=== PATIENT | female | born 1940 | race Caucasian/White ===

== ENCOUNTER 2016-08-21 15:46 | Inpatient (IN) | payer OTHER, MEDICARE ==
[~2016-08-21] VITALS: Ht 160 cm; Wt 68.2 kg
[~2016-08-21 15:46] MED LIST: ASPI325T39 PO; CALC500C70 PO; MAGN400T6 PO; PSEU30TA20 PO; SENNTAB23 PO; SYN100 PO
[2016-08-21] MEDS ORDERED: SODIUM CHLORIDE 0.9% 1000ML 2,000 ML IV STA (16:01)
[2016-08-21] MEDS ORDERED: ONDANSETRON INJ 2 MG/ML 2 ML VIAL IV STA (16:01)
[2016-08-21] MEDS ORDERED: CHOL500024 PO (16:10)
[2016-08-21] MEDS ORDERED: PROC1TAB5 PO (16:10)
[2016-08-21] MEDS ORDERED: MAGN70CA PO (16:13)
[2016-08-21] MEDS ORDERED: OPTIRAY 320 IV PRN (16:15)
[2016-08-21 17:12] LABS: HEMATOCRIT 34.3 % (37-47); MEAN CELL VOLUME 87.5 fL (80-100); MEAN CORPUSCULAR HEMOGLOBIN 29.1 pg (25-34); MEAN CORPUSCULAR HGB CONC 33.2 g/dl (32-36); MEAN PLATELET VOLUME 9.2 fL (7.4-10.4); PLATELET COUNT 249 K/uL (130-400); RED BLOOD COUNT 3.92 M/uL (4.2-5.4); WHITE BLOOD COUNT 3.69 K/uL (4.8-10.8)
[2016-08-21 17:34] LABS: BUN/CREATININE RATIO 26.1 (10-20); CALCIUM 8.6 mg/dl (8.5-10.1); CREATININE 0.8 mg/dl (0.60-1.20); POTASSIUM 3.3 mmol/L (3.5-5.1)
[2016-08-21 17:57] LABS: COMPLETE YES; IG% 0.3 %; LYMPH % 8.1 %; MONO % 12.2 %; NEUT % 79.4 %
--- NOTE | 2016-08-21 18:28 | DIAGNOSTIC IMAGING REPORT ---
CT OF THE ABDOMEN AND PELVIS WITH CONTRAST CLINICAL HISTORY: Lower abdominal pain and vomiting. History of endometrial cancer. COMPARISON STUDY: CT of the abdomen and pelvis June 21, 2013, chest CT April 11, 2015 and pelvic MRI of April 25, 2015. TECHNIQUE: Following IV administration of 94 mL of Optiray-320, axial images of the abdomen and pelvis were obtained from the lung bases to the proximal femurs. Images were reviewed in the axial, sagittal, and coronal planes. IV contrast was administered without complication. CT DOSE: 454.00 mGy.cm FINDINGS: Visualized portions of the lower chest demonstrate segmental right lower lobe pulmonary emboli. There is no pneumatosis, free air or portal venous gas. The liver, spleen, adrenal glands, kidneys and pancreas are unremarkable with exception of numerous subcentimeter renal lesions which are too small to characterize. There are left-sided parapelvic cysts. There are no ureteral calculi. There is no hydronephrosis. There is a 2 mm calculus within the lower pole of the right kidney. There is no biliary or pancreatic ductal dilatation. There is evidence for previous left colon resection. There is a small bowel anastomosis. The proximal to mid small bowel is dilated and fluid-filled. Small bowel feces sign is noted. Transition point is noted within the right lower quadrant shown on axial image 289 of 441. Distal small bowel is decompressed. There is a small amount of ascites. No abscess is present. No suspicious skeletal lesions are present. The endometrium is thickened and heterogeneous, as before. No lymphadenopathy is identified. IMPRESSION: 1. Findings consistent with a moderate grade small bowel obstruction with transition point within the right lower quadrant. Small amount of ascites. No pneumatosis, free air or portal venous gas. 2. Several segmental right lower lobe pulmonary emboli. 3. Endometrial thickening which was shown on prior imaging studies. Residual/recurrent malignancy could have this imaging appearance. Electronically signed by: Adria Allen M.D. 08/21/2016 6:27 PM Dictated Date/Time: 08/21/2016 6:13 PM
[2016-08-21] MEDS ORDERED: HEPARIN IV LOW DOSE NO BOLUS SCH (20:42)
[2016-08-21] MEDS ORDERED: POLYETHYLENE (MIRALAX) 17 GM PACK PO PRN (20:45)
[2016-08-21 20:56] LABS: INR 1.1 (0.9-1.1); PROTHROMBIN TIME (PATIENT) 11.3 SECONDS (9.0-12.0)
--- NOTE | 2016-08-21 20:59 | History and Physical ---
History & Physical Date & Time of Service: Aug 21, 2016 at 20:35 Chief Complaint: Bowels Not Moving, Vomiting, Weak, Stomach Cramps Primary Care Physician: My Vance M.D. History of Present Illness Source: patient, family, clinic records, hospital records 76 year old female with Endometrial Cancer, on weekly chemotherapy with Taxol, presenting with abdominal pain and nausea. Follows with Dr.Manisha Vance for PCP and Dr. Shemar Vance for Oncology, Dr. Taveras in [facility] for Gyne/Onco. Patient receives Taxol weekly (3 weeks on , 1 week off). She is quite active and takes care of activities of daily living independently. Patient was at her usual state of health until last weekend when she started to have some nausea. Last , she started to have abdominal cramps. Yesterday, on the way to [facility] for routine visit, she had nausea and some vomiting episodes. She is not able to keep anything down since yesterday except for some fluids. Last BM was Thursday. Symptoms persisted today, prompting ER consult. CT abdomen reveals (+) moderate small bowel obstruction, transition point at the RLQ, no free air. (+) RLL segmental pulmonary emboli On my exam, patient seen resting in bed with daughter Clayton at the bedside. States she has mild lower quadrant discomfort, but no nausea. No flatus or BM yet. Denies chest pain, dyspnea, palpitations, dizziness. She reports having vaginal spotting, almost daily, which is chronic. No other major bleeding noted. No other symptoms Past Medical/Surgical History Medical Problems: (1) Diverticulitis Status: Resolved Surgical Problems: (1) H/O parathyroidectomy Status: Resolved Family History Cancer- mother Social History Smoking Status: Never Smoker Alcohol Use: none Drug Use: none Marital Status: Housing status: lives alone Occupational Status: retired Allergies Coded Allergies: Cashew (Verified Allergy, Severe, lips swell, 08/21/16) Celecoxib (Verified Allergy, Intermediate, RASH, 08/21/16) Meloxicam (Verified Allergy, Intermediate, RASH, 08/21/16) Adhesives (Verified Allergy, Unknown, SYSTEMIC ITCHING, 08/21/16) Home Medications Scheduled Cholecalciferol (Vitamin D3 Ultra Potency), 50,000 UNITS PO [id number] Levothyroxine Sodium (Synthroid), 100 MCG PO DAILY Sennosides-Docusate Sodium (Stool Softener), 1 TAB PO DAILY Scheduled PRN Aspirin (Aspirin Ec), 650 MG PO QID PRN for Pain Magnesium (Magnesium Sulfate), Unknown Dose PO DIRECTED PRN for Constipation Prochlorperazine Maleate (Compazine), 10 MG PO [id number] PRN for Nausea or Vomiting Pseudoephedrine (Sudafed), 30 MG PO Q4 PRN for Nasal Congestion Review of Systems Constitutional- no fever; no weight loss Eyes- no acute visual changes ENT- no sinus drainage; no pharyngitis Pulmonary- no cough, no wheezing, no shortness of breath Cardiac- no chest pain, no palpitations, no orthopnea, no dependent edema GI- (+) as noted above - no dysuria, no hematuria Musculoskeletal- no arthralgias, no myalgias Derm- no rashes, no new skin lesions, no changing skin lesions Hematologic- no unusual bruising, no unusual bleeding Lymphatics- no adenopathy Endocrine- no polyuria or polydipsia; no heat or cold intolerance Neuro- no headaches, no focal neurologic symptoms Psych- no anxiety, no depression Physical Exam Vital Signs Date Time Temp Pulse Resp B/P (MAP) Pulse Ox O2 Delivery O2 Flow Rate FiO2 08/21/16 19:10 102 20 134/68 95 Room Air 08/21/16 17:47 106 20 153/64 97 Room Air 08/21/16 15:49 37.0 122 18 134/78 97 Room Air General Appearance: WD/WN, no apparent distress Head: normocephalic, atraumatic Eyes: normal inspection, EOMI, sclerae normal ENT: normal ENT inspection, hearing grossly normal, pharynx normal Neck: supple, no adenopathy, thyroid normal, no JVD, trachea midline Respiratory/Chest: chest non-tender, lungs clear, normal breath sounds, no respiratory distress, no accessory muscle use Cardiovascular: regular rate, rhythm, no JVD, no murmur, normal peripheral pulses, + pertinent finding (Port on the right chest wall: clean, no swelling) Abdomen/GI: non tender, soft, no organomegaly, + pertinent finding (hypoactive bowel sounds) Back: normal inspection, no CVA tenderness Extremities/Musculoskelatal: no calf tenderness, no pedal edema, normal range of motion, non-tender, + pertinent finding (right arm (+) mild edema/warmth/ tenderness) Neurologic/Psych: trim installer II-XII nml as tested, no motor/sensory deficits, alert, normal mood/affect, oriented x 3 Skin: normal color, warm/dry, no rash Lymphatic: no adenopathy Diagnostics Laboratory Results Results Past 24 Hours Test 08/21/16 16:30 08/21/16 17:50 08/21/16 20:28 Range/Units White Blood Count 3.69 4.8-10.8 K/uL Red Blood Count 3.92 4.2-5.4 M/uL Hemoglobin 11.4 12.0-16.0 g/dL Hematocrit 34.3 37-47 % Mean Corpuscular Volume 87.5 80-100 fL Mean Corpuscular Hemoglobin 29.1 25-34 pg Mean Corpuscular Hemoglobin Concent 33.2 32-36 g/dl Platelet Count 249 130-400 K/uL Mean Platelet Volume 9.2 7.4-10.4 fL Neutrophils (%) (Auto) 79.4 % Lymphocytes (%) (Auto) 8.1 % Monocytes (%) (Auto) 12.2 % Eosinophils (%) (Auto) 0.0 % Basophils (%) (Auto) 0.0 % Neutrophils # (Auto) 2.93 1.4-6.5 K/uL Lymphocytes # (Auto) 0.30 1.2-3.4 K/uL Monocytes # (Auto) 0.45 0.11-0.59 K/uL Eosinophils # (Auto) 0.00 0-0.5 K/uL Basophils # (Auto) 0.00 0-0.2 K/uL RDW Standard Deviation 55.9 36.4-46.3 fL RDW Coefficient of Variation 17.4 11.5-14.5 % Immature Granulocyte % (Auto) 0.3 % Immature Granulocyte # (Auto) 0.01 0.00-0.02 K/uL Red Blood Cell Morphology Unremarkable Sodium Level 135 136-145 mmol/L Potassium Level 3.3 3.5-5.1 mmol/L Chloride Level 99 98-107 mmol/L Carbon Dioxide Level 27 21-32 mmol/L Anion Gap 9.0 3-11 mmol/L Blood Urea Nitrogen 21 7-18 mg/dl Creatinine 0.80 0.60-1.20 mg/dl Est Creatinine Clear Calc Drug Dose 54.8 ml/min Estimated GFR () 82.4 Estimated GFR (Non- 71.1 BUN/Creatinine Ratio 26.1 10-20 Random Glucose 121 70-99 mg/dl Calcium Level 8.6 8.5-10.1 mg/dl Total Bilirubin 1.1 0.2-1 mg/dl Direct Bilirubin 0.2 0-0.2 mg/dl Aspartate Amino Transf (AST/SGOT) 20 15-37 U/L Alanine Aminotransferase (ALT/SGPT) 21 12-78 U/L Alkaline Phosphatase 52 45-117 U/L Total Protein 6.4 6.4-8.2 gm/dl Albumin 3.0 3.4-5.0 gm/dl Lipase 76 73-393 U/L Lactic Acid Level 1.0 0.4-2.0 mmol/L Diagnostic Radiology CT abdomen: 1. Findings consistent with a moderate grade small bowel obstruction with transition point within the right lower quadrant. Small amount of ascites. No pneumatosis, free air or portal venous gas. 2. Several segmental right lower lobe pulmonary emboli. 3. Endometrial thickening which was shown on prior imaging studies. Residual/recurrent malignancy could have this imaging appearance. EKG HR 109, sinus rhythm, no signs of acute ischemia or infarct Impression Assessment and Plan 76 year old female with Endometrial Cancer, on weekly chemotherapy with Taxol, presenting with abdominal pain and nausea. SMALL BOWEL OBSTRUCTION - risk factor: history of colectomy - no nausea/vomiting at the ER - NPO, IV fluids, replace K, monitor electrolytes Gen Surg consulted RIGHT LOWER LOBE PULMONARY EMBOLI - hemodynamically stable - check Doppler US of the Upper and Lower Extremity - start Heparin Drip- low dose and no bolus need to monitor vaginal bleeding, if patient has major bleeding, will need IVC filter discussed with Dr. Shemar Vance HYPOKALEMIA - replace with IV - check Mg ENDOMETRIAL CANCER - on chemo with Taxol weekly Code status CPR only as per discussion with patient and daughter Disposition pending lives alone independently needs PT/OT ff up with Dr. Yulia Vance for PCP Dr. Renita Vance for Onco Dr. Taveras in [facility] for Gyne Onco discussed with patient and her daughter, both are agreeable and comfortable with plan of care VTE Prophylaxis VTE Risk Assessment Done? Y/N: Yes Risk Level: High Given or contraindicated: Unfractionated heparin SQ
[2016-08-21] MEDS ORDERED: ACETAMINOPHEN 325 MG TAB PO PRN (21:15)
[2016-08-21] MEDS: HEPARIN 25,000 UNIT/500ML D5W 500 ML IV PRN (21:42)
[2016-08-21 22:28] VITALS: BP 122/67; PULSE 106; TEMP 36.9; O2SAT 93; Ht 160 cm; Wt 68.2 kg
--- NOTE | 2016-08-21 23:05 | EMERGENCY ROOM VISIT NOTE ---
History Report prepared by Josefa: Carmen Arenas Under the Supervision of: Dr. Narayan Landa D.O. First contact with patient: 15:53 Chief Complaint: WEAKNESS Stated Complaint: BOWELS NOT MOVING, VOMITING, WEAK, STOMACH CRAMPS History of Present Illness The patient is a 76 year old female who presents to the Emergency Room with complaints of constant generalized weakness beginning yesterday. The patient states that she has uterine cancer and has been on chemotherapy for a few years. The patient's daughter states that she started his course of chemotherapy 2 months ago and has 3 weeks on and 1 week off. She reports that 2 days ago she went to chemotherapy and yesterday she began to feel nauseous and had 6 episodes of vomiting. She reports that she has not had a bowel movement in the last 2 days and has been having trouble with constipation recently. The patient's daughter states that they have tried an enema and suppositories without relief of her constipation. The patient complains of abdominal cramping. She denies any diarrhea, blood in the stool, urinary symptoms, chest pain, and shortness of breath. She notes a history of diverticulitis and a portion of bowel removed and a hysterectomy. The patient reports that she has been able to keep water down. She states that this is the first time that she has had trouble with vomiting after treatment. Source of History: patient Onset: yesterday Position: other (global) Quality: other (weak) Timing: constant Associated Symptoms: + nausea, + vomiting, + abdominal pain, No chest pain, No SOB, No diarrhea, No urinary symptoms Note: Pt complains of constipation. She denies any blood in the stool. Review of Systems See HPI for pertinent positives & negatives. A total of 10 systems reviewed and were otherwise negative. Past Medical & Surgical Medical Problems: (1) Diverticulitis (2) Endometrial adenocarcinoma (3) Pulmonary embolism (4) Small bowel obstruction (5) Small bowel obstruction Surgical Problems: (1) H/O parathyroidectomy Family History No pertinent family history stated. Social History Smoking Status: Never Smoker Alcohol Use: none Drug Use: none Marital Status: Housing Status: lives with family Occupation Status: retired Current/Historical Medications Scheduled Cholecalciferol (Vitamin D3 Ultra Potency), 50,000 UNITS PO [id number] Levothyroxine Sodium (Synthroid), 100 MCG PO DAILY Sennosides-Docusate Sodium (Stool Softener), 1 TAB PO DAILY Scheduled PRN Aspirin (Aspirin Ec), 650 MG PO QID PRN for Pain Magnesium (Magnesium Sulfate), Unknown Dose PO DIRECTED PRN for Constipation Prochlorperazine Maleate (Compazine), 10 MG PO [id number] PRN for Nausea or Vomiting Pseudoephedrine (Sudafed), 30 MG PO Q4 PRN for Nasal Congestion Allergies Coded Allergies: Cashew (Verified Allergy, Severe, lips swell, 08/21/16) Celecoxib (Verified Allergy, Intermediate, RASH, 08/21/16) Meloxicam (Verified Allergy, Intermediate, RASH, 08/21/16) Adhesives (Verified Allergy, Unknown, SYSTEMIC ITCHING, 08/21/16) Physical Exam Vital Signs Date Time Temp Pulse Resp B/P (MAP) Pulse Ox O2 Delivery O2 Flow Rate FiO2 08/21/16 19:10 102 20 134/68 95 Room Air 08/21/16 17:47 106 20 153/64 97 Room Air 08/21/16 15:49 37.0 122 18 134/78 97 Room Air Physical Exam GENERAL: sitting up in bed, slightly ill appearing, disheveled, alert, well nourished, no distress, non-toxic EYE EXAM: normal conjunctiva OROPHARYNX: no exudate, no erythema, lips, buccal mucosa, and tongue normal and mucous membranes are dry NECK: supple, no nuchal rigidity, no adenopathy, non-tender LUNGS: Clear to auscultation. Normal chest wall mechanics HEART: tachycardic, no murmurs, S1 normal and S2 normal ABDOMEN: abdomen soft, tender to palpation in infraumbilical region bilaterally , normo-active bowel sounds, no masses, no rebound or guarding. BACK: Back is symmetrical on inspection and there is no deformity, no midline tenderness, no CVA tenderness. SKIN: no rashes and no bruising UPPER EXTREMITIES: upper extremities are grossly normal. LOWER EXTREMITIES: No pitting edema. NEURO EXAM: Normal sensorium, cranial nerves II-XII grossly intact, normal speech, no gross weakness of arms, no gross weakness of legs. Medical Decision & Procedures ER Provider Diagnostic Interpretation: Radiology results as stated below per my review and the radiologist's interpretation: CT OF THE ABDOMEN AND PELVIS WITH CONTRAST FINDINGS: Visualized portions of the lower chest demonstrate segmental right lower lobe pulmonary emboli. There is no pneumatosis, free air or portal venous gas. The liver, spleen, adrenal glands, kidneys and pancreas are unremarkable with exception of numerous subcentimeter renal lesions which are too small to characterize. There are left-sided parapelvic cysts. There are no ureteral calculi. There is no hydronephrosis. There is a 2 mm calculus within the lower pole of the right kidney. There is no biliary or pancreatic ductal dilatation. There is evidence for previous left colon resection. There is a small bowel anastomosis. The proximal to mid small bowel is dilated and fluid-filled. Small bowel feces sign is noted. Transition point is noted within the right lower quadrant shown on axial image 289 of 441. Distal small bowel is decompressed. There is a small amount of ascites. No abscess is present. No suspicious skeletal lesions are present. The endometrium is thickened and heterogeneous, as before. No lymphadenopathy is identified. IMPRESSION: 1. Findings consistent with a moderate grade small bowel obstruction with transition point within the right lower quadrant. Small amount of ascites. No pneumatosis, free air or portal venous gas. 2. Several segmental right lower lobe pulmonary emboli. 3. Endometrial thickening which was shown on prior imaging studies. Residual/recurrent malignancy could have this imaging appearance. Electronically signed by: Adria Allen M.D. 08/21/2016 6:27 PM Dictated Date/Time: 08/21/2016 6:13 PM Laboratory Results 08/21/16 16:30 Red Blood Count 3.92, Mean Corpuscular Volume 87.5, Mean Corpuscular Hemoglobin 29.1, Mean Corpuscular Hemoglobin Concent 33.2, Mean Platelet Volume 9.2, Neutrophils (%) (Auto) 79.4, Lymphocytes (%) (Auto) 8.1, Monocytes (%) (Auto) 12.2, Eosinophils (%) (Auto) 0.0, Basophils (%) (Auto) 0.0, Neutrophils # (Auto ) 2.93, Lymphocytes # (Auto) 0.30, Monocytes # (Auto) 0.45, Eosinophils # (Auto ) 0.00, Basophils # (Auto) 0.00 08/21/16 16:30 Test 08/21/16 16:30 08/21/16 17:50 White Blood Count 3.69 K/uL (4.8-10.8) Red Blood Count 3.92 M/uL (4.2-5.4) Hemoglobin 11.4 g/dL (12.0-16.0) Hematocrit 34.3 % (37-47) Mean Corpuscular Volume 87.5 fL (80-100) Mean Corpuscular Hemoglobin 29.1 pg (25-34) Mean Corpuscular Hemoglobin Concent 33.2 g/dl (32-36) Platelet Count 249 K/uL (130-400) Mean Platelet Volume 9.2 fL (7.4-10.4) Neutrophils (%) (Auto) 79.4 % Lymphocytes (%) (Auto) 8.1 % Monocytes (%) (Auto) 12.2 % Eosinophils (%) (Auto) 0.0 % Basophils (%) (Auto) 0.0 % Neutrophils # (Auto) 2.93 K/uL (1.4-6.5) Lymphocytes # (Auto) 0.30 K/uL (1.2-3.4) Monocytes # (Auto) 0.45 K/uL (0.11-0.59) Eosinophils # (Auto) 0.00 K/uL (0-0.5) Basophils # (Auto) 0.00 K/uL (0-0.2) RDW Standard Deviation 55.9 fL (36.4-46.3) RDW Coefficient of Variation 17.4 % (11.5-14.5) Immature Granulocyte % (Auto) 0.3 % Immature Granulocyte # (Auto) 0.01 K/uL (0.00-0.02) Red Blood Cell Morphology Unremarkable Prothrombin Time 11.3 SECONDS (9.0-12.0) Prothromb Time International Ratio 1.1 (0.9-1.1) Activated Partial Thromboplast Time 26.7 SECONDS (21.0-31.0) Partial Thromboplastin Ratio 1.0 Anion Gap 9.0 mmol/L (3-11) Est Creatinine Clear Calc Drug Dose 54.8 ml/min Estimated GFR () 82.4 Estimated GFR (Non- 71.1 BUN/Creatinine Ratio 26.1 (10-20) Calcium Level 8.6 mg/dl (8.5-10.1) Magnesium Level 2.2 mg/dl (1.8-2.4) Total Bilirubin 1.1 mg/dl (0.2-1) Direct Bilirubin 0.2 mg/dl (0-0.2) Aspartate Amino Transf (AST/SGOT) 20 U/L (15-37) Alanine Aminotransferase (ALT/SGPT) 21 U/L (12-78) Alkaline Phosphatase 52 U/L (45-117) Total Protein 6.4 gm/dl (6.4-8.2) Albumin 3.0 gm/dl (3.4-5.0) Lipase 76 U/L (73-393) Lactic Acid Level 1.0 mmol/L (0.4-2.0) Laboratory results per my review. Medications Administered Medications (Trade) Dose Ordered Sig/Walt Route Start Time Stop Time Status Last Admin Dose Admin Sodium Chloride 2,000 ml @ 999 mls/hr Q2H1M STAT IV 08/21/16 16:01 08/21/16 18:01 DC 08/21/16 16:45 999 MLS/HR Ondansetron HCl (Zofran Inj) 4 mg NOW STAT IV 08/21/16 16:01 08/21/16 16:02 DC 08/21/16 16:45 4 MG ECG Indication: weakness Rate (beats per minute): 109 Rhythm: sinus tachycardia Findings: Q waves (Inferior), left axis deviation, other (ST wave changes in anterior) ED Course ED COURSE: Vital signs were reviewed and showed tachycardic and hypertensive The patients medical record was reviewed The above diagnostic studies were performed and reviewed. ED treatments and interventions as stated above. 1553: The patient was evaluated in room C9. A complete history and physical examination was performed. 1601: Zofran Inj 4mg IV, Sodium Chloride 2000 ml @ 999 mls/hr IV. 1438: I reevaluated the patient. Her heart rate came down and she is getting fluids. 1848: I reviewed the patient's case with Dr. Ley. He will evaluate the patient for further management. 1902: Upon reevaluation, the patient is doing well.I discussed my findings with the patient and she understands and agrees with the treatment plan. Based on the patients age, coexisting illnesses, exam and lab findings the decision to treat as an inpatient was made. The patient remained stable while under my care. The patient will be evaluated for further management. Medical Decision Differential Diagnosis includes but is not limited to dehydration, stroke, anemia, hypoglycemia, hyponatremia, hypernatremia, urinary tract infection, pneumonia, bronchitis, sepsis, gastroenteritis, additional abdominal pathology, metabolic abnormalities and infections. Blood pressure screening: Patient was found to have an elevated blood pressure and was referred to their primary doctor for recheck and further treatment. Medication Reconciliation: I attest that I have personally reviewed the patient' s current medication list. Patient is a 76-year-old female with past medical history of uterine cancer who presents the ER for vomiting and abdominal pain. Last bowel movement was on Thursday. Labs were fairly unremarkable. CT of the abdomen pelvis supports small bowel obstruction. Patient declined any pain meds. Was given fluids. Patient was noted to internal medicine following discussion with surgery. Consults Time Called: 1841 Consulting Physician: Dr. Av Orellana Returned Call: [phone] I reviewed the patient's case with Dr. Ley. He will evaluate the patient for further management. Impression Primary Impression: Small bowel obstruction Scribe Attestation The scribe's documentation has been prepared under my direction and personally reviewed by me in its entirety. I confirm that the note above accurately reflects all work, treatment, procedures, and medical decision making performed by me. Departure Information Dispostion Being Evaluated By Hospitalist Referrals My Vance M.D. (PCP) Patient Instructions My [facility]
[2016-08-21 23:18] VITALS: BP 119/76; PULSE 106; TEMP 37.6; O2SAT 96
[2016-08-21 23:59] VITALS: O2SAT 96
[2016-08-22] VITALS (10 sets, daily range): BP systolic 108–143; BP diastolic 72–85; PULSE 64–112; TEMP 36.9–37.5; O2SAT 93–98
[2016-08-22] MEDS: D5NSS + 20MEQ KCL 1,000 ML IV SCH ×3 (00:30→16:04)
[2016-08-22] MEDS: POTASSIUM CHLR 10 MEQ / WTR 10 MEQ in PREMIXED WATER 100 ML IV SCH ×4 (00:31→04:09)
[2016-08-22] MEDS: ONDANSETRON INJ 2 MG/ML 2 ML VIAL IV PRN ×2 (04:08→18:19)
[2016-08-22 04:15] LABS: HEMATOCRIT 31.3 % (37-47); MEAN CELL VOLUME 87.2 fL (80-100); MEAN CORPUSCULAR HEMOGLOBIN 28.7 pg (25-34); MEAN CORPUSCULAR HGB CONC 32.9 g/dl (32-36); MEAN PLATELET VOLUME 9.3 fL (7.4-10.4); PLATELET COUNT 223 K/uL (130-400); RED BLOOD COUNT 3.59 M/uL (4.2-5.4); WHITE BLOOD COUNT 3.25 K/uL (4.8-10.8)
[2016-08-22 04:31] LABS: PARTIAL THROMBOPLASTIN RATIO 1.3
[2016-08-22 04:43] LABS: BASO % 0.3 %; BASO ABS # 0.01 K/uL (0-0.2); COMPLETE YES; IG% 0.6 %; LYMPH % 11.4 %; LYMPH ABS # 0.37 K/uL (1.2-3.4); MONO % 12.3 %; NEUT % 75.4 %
[2016-08-22 04:50] LABS: BUN/CREATININE RATIO 20.3 (10-20); CALCIUM 7.6 mg/dl (8.5-10.1); CREATININE 0.68 mg/dl (0.60-1.20); MAGNESIUM 2.2 mg/dl (1.8-2.4); POTASSIUM 3.7 mmol/L (3.5-5.1)
[2016-08-22] MEDS ORDERED: HEPARIN IV BOLUS 5,000 UNIT in SYRINGE 0 ML IV ONE (05:15)
[2016-08-22] MEDS: HEPARIN 25,000 UNIT/500ML D5W 500 ML IV PRN (05:33)
[2016-08-22] MEDS: LEVOTHYROXINE 100 MCG TAB PO SCH (05:34)
--- NOTE | 2016-08-22 06:49 | DIAGNOSTIC IMAGING REPORT ---
BILATERAL LOWER EXTREMITY VENOUS DOPPLER HISTORY: Pain. Edema. R/O DVT COMPARISON STUDY: None. FINDINGS: Deep venous thrombosis in one of the 2 right peroneal veins. Probable involvement of the left peroneal veins. Compressibility is incomplete. All major venous structures are unremarkable. IMPRESSION: Bilateral acute deep venous thrombosis in the peroneal veins bilaterally. Electronically signed by: Nate Jones M.D. 08/22/2016 6:48 AM Dictated Date/Time: 08/22/2016 6:47 AM
--- NOTE | 2016-08-22 07:10 | DIAGNOSTIC IMAGING REPORT ---
Bilateral UPPER EXTREMITY VENOUS DOPPLER HISTORY: r/o dvt COMPARISON STUDY: None. FINDINGS: The bilateral internal jugular veins are patent. There is normal flow within the left subclavian vein. The right subclavian vein is obscured by the overlying bandage.. There is normal flow and compressibility within the bilateral axillary, basilic, brachial, radial, ulnar, and visualized cephalic veins. IMPRESSION: No DVT within the visualized bilateral upper extremities. Electronically signed by: Bijan Randhawa M.D. 08/22/2016 7:08 AM Dictated Date/Time: 08/22/2016 7:07 AM
[2016-08-22] MEDS: DOCUSATE SODIUM/SENNA 50/8.6MG TAB PO SCH (08:00)
--- NOTE | 2016-08-22 08:16 | Medical Consult ---
Consultation Date of Consultation: Aug 22, 2016. Attending Physician: Anita Mccord M.D. History of Present Illness 76 y/o female admitted last night for SBO, history of endometrial cancer and treated with brachytherapy and chemo after hysterectomy could not be completed in 2013. She had nausea, several episodes of vomiting at home. She became weak and could not keep anything down so her daughter convinced her to come to the ED. She had some pain last night but is improved this morning as well as her nausea. no flatus and has not had BM in several days. Incidental finding of RLL PE, now on heparin gtt. Has bilateral peroneal DVT. Past Medical/Surgical History Medical Problems: (1) Diverticulitis (2) Endometrial adenocarcinoma (3) Pulmonary embolism (4) Small bowel obstruction (5) Small bowel obstruction Surgical Problems: (1) H/O parathyroidectomy (2) attempt hysterectomy, aborted due to adhesions (3) Em's, colostomy takedown Social History Smoking Status: Never Smoker Alcohol Use: none Drug Use: none Marital Status: Housing Status: lives with family Occupation Status: retired Allergies Coded Allergies: Cashew (Verified Allergy, Severe, lips swell, 08/21/16) Celecoxib (Verified Allergy, Intermediate, RASH, 08/21/16) Meloxicam (Verified Allergy, Intermediate, RASH, 08/21/16) Adhesives (Verified Allergy, Unknown, SYSTEMIC ITCHING, 08/21/16) Current Inpatient Medications Current Inpatient Medications Medications (Trade) Dose Ordered Sig/Walt Route Start Time Stop Time Status Last Admin Dose Admin Ioversol (Optiray 320) 100 ml UD PRN IV 08/21/16 16:15 08/25/16 16:14 Potassium Chloride/Dextrose/ Sod Cl 1,000 ml @ 80 mls/hr [id number] IV 08/21/16 20:30 09/20/16 20:29 08/22/16 08:00 80 MLS/HR Levothyroxine Sodium (Synthroid Tab) 100 mcg DAILYBB PO 08/22/16 06:00 09/21/16 06:59 08/22/16 05:34 100 MCG Senna/Docusate Sodium (Senokot S Tab) 1 tab QAM PO 08/22/16 09:00 09/21/16 08:59 08/22/16 08:00 1 TAB Polyethylene (Miralax Powder Packet) 17 gm DAILY PRN PO 08/21/16 20:45 09/20/16 20:44 Acetaminophen (Tylenol Tab) 650 mg Q4H PRN PO 08/21/16 21:15 09/20/16 21:14 Ondansetron HCl (Zofran Inj) 4 mg Q6H PRN IV 08/21/16 21:15 09/20/16 21:14 08/22/16 04:08 4 MG Heparin Sodium/ Dextrose 500 ml @ 19 mls/hr Q24H PRN IV 08/21/16 21:30 09/20/16 21:29 08/22/16 05:33 19 MLS/HR Review of Systems Constitutional: No fever, No chills Abdomen: + pain, + nausea, + vomiting, + constipation Genitourinary - Female: + vaginal bleeding Physical Exam Date Time Temp Pulse Resp B/P (MAP) Pulse Ox O2 Delivery O2 Flow Rate FiO2 08/22/16 04:09 37.0 101 20 134/85 (101) 96 Room Air 08/22/16 04:00 96 Room Air 08/21/16 23:59 96 Room Air 08/21/16 23:18 37.6 106 22 119/76 (90) 96 Room Air 08/21/16 22:28 36.9 106 18 122/67 93 Room Air 08/21/16 21:43 104 20 131/69 92 Room Air 08/21/16 20:49 100 20 135/85 98 08/21/16 19:10 102 20 134/68 95 Room Air 08/21/16 17:47 106 20 153/64 97 Room Air 08/21/16 15:49 37.0 122 18 134/78 97 Room Air General Appearance: WD/WN, no apparent distress ENT: normal ENT inspection, + pertinent finding (no NGT) Respiratory/Chest: lungs clear Cardiovascular: regular rate, rhythm Abdomen/GI: soft, + tenderness (minimal), + distended (slighlty) Skin: normal color, warm/dry Laboratory Results Last 24 Hours Test 08/21/16 16:30 08/21/16 17:50 08/22/16 03:29 White Blood Count 3.69 K/uL 3.25 K/uL Red Blood Count 3.92 M/uL 3.59 M/uL Hemoglobin 11.4 g/dL 10.3 g/dL Hematocrit 34.3 % 31.3 % Mean Corpuscular Volume 87.5 fL 87.2 fL Mean Corpuscular Hemoglobin 29.1 pg 28.7 pg Mean Corpuscular Hemoglobin Concent 33.2 g/dl 32.9 g/dl Platelet Count 249 K/uL 223 K/uL Mean Platelet Volume 9.2 fL 9.3 fL Neutrophils (%) (Auto) 79.4 % 75.4 % Lymphocytes (%) (Auto) 8.1 % 11.4 % Monocytes (%) (Auto) 12.2 % 12.3 % Eosinophils (%) (Auto) 0.0 % 0.0 % Basophils (%) (Auto) 0.0 % 0.3 % Neutrophils # (Auto) 2.93 K/uL 2.45 K/uL Lymphocytes # (Auto) 0.30 K/uL 0.37 K/uL Monocytes # (Auto) 0.45 K/uL 0.40 K/uL Eosinophils # (Auto) 0.00 K/uL 0.00 K/uL Basophils # (Auto) 0.00 K/uL 0.01 K/uL RDW Standard Deviation 55.9 fL 56.2 fL RDW Coefficient of Variation 17.4 % 17.5 % Immature Granulocyte % (Auto) 0.3 % 0.6 % Immature Granulocyte # (Auto) 0.01 K/uL 0.02 K/uL Red Blood Cell Morphology Unremarkable Unremarkable Prothrombin Time 11.3 SECONDS Prothromb Time International Ratio 1.1 Activated Partial Thromboplast Time 26.7 SECONDS 33.1 SECONDS Partial Thromboplastin Ratio 1.0 1.3 Sodium Level 135 mmol/L 136 mmol/L Potassium Level 3.3 mmol/L 3.7 mmol/L Chloride Level 99 mmol/L 102 mmol/L Carbon Dioxide Level 27 mmol/L 27 mmol/L Anion Gap 9.0 mmol/L 7.0 mmol/L Blood Urea Nitrogen 21 mg/dl 14 mg/dl Creatinine 0.80 mg/dl 0.68 mg/dl Est Creatinine Clear Calc Drug Dose 54.8 ml/min 64.1 ml/min Estimated GFR () 82.4 97.8 Estimated GFR (Non- 71.1 84.4 BUN/Creatinine Ratio 26.1 20.3 Random Glucose 121 mg/dl 118 mg/dl Calcium Level 8.6 mg/dl 7.6 mg/dl Magnesium Level 2.2 mg/dl 2.2 mg/dl Total Bilirubin 1.1 mg/dl Direct Bilirubin 0.2 mg/dl Aspartate Amino Transf (AST/SGOT) 20 U/L Alanine Aminotransferase (ALT/SGPT) 21 U/L Alkaline Phosphatase 52 U/L Total Protein 6.4 gm/dl Albumin 3.0 gm/dl Lipase 76 U/L Lactic Acid Level 1.0 mmol/L CT IMPRESSION: 1. Findings consistent with a moderate grade small bowel obstruction with transition point within the right lower quadrant. Small amount of ascites. No pneumatosis, free air or portal venous gas. 2. Several segmental right lower lobe pulmonary emboli. 3. Endometrial thickening which was shown on prior imaging studies. Residual/recurrent malignancy could have this imaging appearance. Electronically signed by: Adria Allen M.D. 08/21/2016 6:27 PM Dictated Date/Time: 08/21/2016 6:13 PM Assessment & Plan SBO PE/DVT Endometrial cancer, h/o diverticulitis Symptoms have improved overnight with bowel rest. Continue NPO for now, will increase IVF. No acute abdominal findings, will continue to monitor.
[2016-08-22 11:43] LABS: PARTIAL THROMBOPLASTIN RATIO 2.4
--- NOTE | 2016-08-22 13:22 | Clinical Documentation Query ---
CLINICAL DOCUMENTATION QUERY Dr. BONE, In your clinical opinion is this patient being managed for: ( x ) Acute DVT's bilateral peroneal veins ( ) Other explanation of clinical findings (Please Explain) ( ) Unable to determine (Please Define) ( ) Need to Discuss ( ) Not Agree The medical record reflects the following clinical findings, treatment, and risk factors. Clinical Indicators: 76 yo female presenting with a small bowel obstruction. Incidental finding of RLL pulmonary emboli. Bilateral LE venous dopplers showed Bilateral acute deep venous thrombosis in the peroneal veins. Treatment: IV heparin gtt, tele Risk Factors: uterine cancer, PE Please clarify and document your clinical opinion in the progress notes and discharge summary. Terms such as "probable", "suspected", "likely", "questionable", "possible", or "still to be ruled out" are acceptable. IF IN AGREEMENT, YOU MUST DOCUMENT ABOVE DIAGNOSTIC STATEMENT IN DAILY PROGRESS NOTES AND DISCHARGE SUMMARY. This document is not part of the patient's record. Thank You, Tiffanie Schuster RN [phone]
--- NOTE | 2016-08-22 19:45 | Progress Note ---
Internal Med Progress Note Date of Service: Aug 22, 2016. Provider Documentation: SUBJECTIVE: offers no complain no chest pain , SOB was able to walk in hallway has minimum pain in abdomen no nausea unable to pass gas OBJECTIVE: Vital Signs-as noted below Exam: General-no sign of distress Eyes-sclera non icteric ENT-NAd Neck- no J VD Lungs-CTA Heart-regular s1/S2 Abdomen-soft, hypoactive bowel sound Extremities-no lower ext edema Neuro-AAo x3, no focal deficit Lab data as noted below. ASSESSMENT & PLAN: 76 year old female with Endometrial Cancer, on weekly chemotherapy with Taxol, presenting with abdominal pain and nausea. SMALL BOWEL OBSTRUCTION - risk factor: history of colectomy - no nausea/vomiting -appreciate Gen Surg consult cont bowel rest , NPO IV fluids repeat KUB in AM RIGHT LOWER LOBE PULMONARY EMBOLI -possible due to hypercoagulable status due to Endometrial Ca - Doppler US Lower Extremity-: Bilateral acute deep venous thrombosis in the peroneal veins bilaterally. - on Heparin Drip- low dose and no bolus cont to monitor vaginal bleeding follow h&H may need IVF filter placement in any event of major bleeding case discussed with Dr. Shemar Vance HYPOKALEMIA due to GI loss - replaced - follow lytes ENDOMETRIAL CANCER - on chemo with Taxol weekly follows with Heme onc Dr Vance Code status DNI DVT PROPHYLAXIS IV heparin wt based protocol will be changed to therapeutic Lovenox ( more appropriate anticoagulation in setting of malignancy ) if no indication for bowel surgery DISPOSITION pending lives alone independently needs PT/OT ff up with Dr. Yulia Vance for PCP Dr. Renita Vance for Onco Dr. Taveras in [facility] for Gyne Onco Vital Signs: Date Time Temp Pulse Resp B/P (MAP) Pulse Ox O2 Delivery O2 Flow Rate FiO2 08/22/16 19:34 37.5 98 18 121/80 (94) 98 Room Air 08/22/16 18:30 Room Air 08/22/16 18:30 37.4 106 18 122/78 (93) 94 Room Air 08/22/16 18:01 37.1 96 18 98 08/22/16 16:00 Room Air 08/22/16 15:54 37.1 96 18 123/77 (92) 98 Room Air 08/22/16 12:44 37.0 112 18 142/83 (102) 93 Room Air 08/22/16 12:36 36.9 64 20 143/81 (101) 96 Room Air 08/22/16 12:15 Room Air 08/22/16 08:20 Room Air 08/22/16 08:07 37.1 103 16 139/74 (95) 96 Room Air 08/22/16 04:09 37.0 101 20 134/85 (101) 96 Room Air 08/22/16 04:00 96 Room Air 08/21/16 23:59 96 Room Air 08/21/16 23:18 37.6 106 22 119/76 (90) 96 Room Air 08/21/16 22:28 36.9 106 18 122/67 93 Room Air 08/21/16 21:43 104 20 131/69 92 Room Air 08/21/16 20:49 100 20 135/85 98 Lab Results: Results Past 24 Hours Test 08/22/16 03:29 08/22/16 11:03 Range/Units White Blood Count 3.25 4.8-10.8 K/uL Red Blood Count 3.59 4.2-5.4 M/uL Hemoglobin 10.3 12.0-16.0 g/dL Hematocrit 31.3 37-47 % Mean Corpuscular Volume 87.2 80-100 fL Mean Corpuscular Hemoglobin 28.7 25-34 pg Mean Corpuscular Hemoglobin Concent 32.9 32-36 g/dl Platelet Count 223 130-400 K/uL Mean Platelet Volume 9.3 7.4-10.4 fL Neutrophils (%) (Auto) 75.4 % Lymphocytes (%) (Auto) 11.4 % Monocytes (%) (Auto) 12.3 % Eosinophils (%) (Auto) 0.0 % Basophils (%) (Auto) 0.3 % Neutrophils # (Auto) 2.45 1.4-6.5 K/uL Lymphocytes # (Auto) 0.37 1.2-3.4 K/uL Monocytes # (Auto) 0.40 0.11-0.59 K/uL Eosinophils # (Auto) 0.00 0-0.5 K/uL Basophils # (Auto) 0.01 0-0.2 K/uL RDW Standard Deviation 56.2 36.4-46.3 fL RDW Coefficient of Variation 17.5 11.5-14.5 % Immature Granulocyte % (Auto) 0.6 % Immature Granulocyte # (Auto) 0.02 0.00-0.02 K/uL Red Blood Cell Morphology Unremarkable Activated Partial Thromboplast Time 33.1 62.3 21.0-31.0 SECONDS Partial Thromboplastin Ratio 1.3 2.4 Sodium Level 136 136-145 mmol/L Potassium Level 3.7 3.5-5.1 mmol/L Chloride Level 102 98-107 mmol/L Carbon Dioxide Level 27 21-32 mmol/L Anion Gap 7.0 3-11 mmol/L Blood Urea Nitrogen 14 7-18 mg/dl Creatinine 0.68 0.60-1.20 mg/dl Est Creatinine Clear Calc Drug Dose 64.1 ml/min Estimated GFR () 97.8 Estimated GFR (Non- 84.4 BUN/Creatinine Ratio 20.3 10-20 Random Glucose 118 70-99 mg/dl Calcium Level 7.6 8.5-10.1 mg/dl Magnesium Level 2.2 1.8-2.4 mg/dl
--- NOTE | 2016-08-22 20:21 | Medical Consult ---
Consultation Date of Consultation: Aug 22, 2016. Attending Physician: Anita Mccord M.D. Past Medical/Surgical History 76-year-old female, a case of endometrial carcinoma diagnosed in 2013, she could not have surgical intervention because of previous complications related to diverticulitis and perforation. Current treatment: -weekly paclitaxel and carboplatin (weekly x3 followed by 1 week off) since 2016. Previous treatment: -intracavitary brachytherapy in February,. -Megace therapy between October,-March,. -vaginal recurrence noted, S/P intracavitary vaginal cylinder HDR brachytherapy at [facility] -paclitaxel and carboplatin (every 3 weekly) x6, last cycle received on 2015. -vaginal recurrent disease, restarted paclitaxel and carboplatin in January, x3. Last cycle was received in February,. -hormonal treatment in the form of femora for 4few weeks Personal history of cancer diagnosis: - Diagnosed with right breast cancer in 1998, she had a lumpectomy and radiation treatment, received tamoxifen for about 6 weeks duration but then she could not tolerate that treatment well and so it was discontinued. - Diagnosed with left breast cancer in 2004, had lumpectomy and radiation treatment, no tamoxifen received at that time. - Thyroid cancer diagnosed in 2010, S/P thyroidectomy, she received radioactive iodine x1, she follows up with the [facility]. Current other problem: -ongoing vaginal bleeding. - insomnia and anxiety. Recently started on Ativan. Now admitted at [facility] on 08/21/2016 for partial small bowel obstruction and bilateral lower extremity DVT and pulmonary embolism. Saw her at bedside on 08/22/2016, she did not have any leg pain, also did not have any new pulmonary symptoms other than some tiredness which could be related to the anemia with hemoglobin level around 11 g/dL. Ongoing vaginal bleeding present. Presently she is on conservative treatment for the small-bowel obstruction with gradual improvement of the abdominal discomfort, last BM was about 4 days back. No BM since hospitalization. No fever, earlier she vomited about 6 times before coming to the hospital. No bleeding from any other sites. She is not on any oral iron replacement therapy. Has some mild tingling and numbness but it has not further progressed. On exam: - Alert and oriented x3, well built woman, not in any distress. - HEENT: no icterus, mild pallor noted, Throat: Normal. - Neck: No palpable cervical lymphadenopathy. - Chest: clear to auscultation. - Abdomen: Mild distention of the abdomen present, no hepatomegaly, no splenomegaly. - No focal neuro deficit. - Extremities: no finger clubbing, no leg edema. Blood workup done on 08/20/2016:-WBC 3600, H&H of 11.4/34.3, Platelet count of 249,000 -WBC 3200, H&H of 10.3/31, MCV 87, Platelet count of 220,000, ANC 2400. -BUN/Creat: 14/0.6, normal liver function test. -Normal PT and PTT before starting heparin infusion. -CT scan of the abdomen pelvis done with intravenous contrast on 08/21/2016 showed small-bowel obstruction with a transition point within the right lower quadrant, small amount of ascites present, several segmental right lower lobe pulmonary embolism noted, thickening of the endometrium noted. -upper extremity Doppler evaluation--> negative for DVT. -lower extremity Doppler evaluation showed acute bilateral DVT in the peroneal veins bilaterally. ASSESSMENT AND PLAN: 76-year-old female, who has recurrent endometrial cancer, had received local radiation treatment, systemic chemotherapy, she had unresectable disease because of previous complications related to the diverticulitis with perforation, now since Jun, 2016 she receiving additional chemotherapy with weekly paclitaxel and carboplatin x3 followed by 1 week off, last cycle of chemotherapy was received this week on 08/19/2016. She did not have any abdominal symptom at that time but now she is admitted for small bowel obstruction, also imaging study showed evidence of right lower lobe pulmonary embolism as well as bilateral lower extremity peroneal DVT, no local leg pain or leg edema, no pulmonary symptom other than some tiredness. Mild anemia noted , she has ongoing vaginal bleeding, now started her on IV heparin infusion new diagnosis of DVT and pulmonary embolism. Hemodynamically she has remained stable. Mild low white blood cell count noted. Recent the blood workup done this week showed no evidence of iron deficiency but with the ongoing vaginal bleeding, she may experience iron deficiency, will consider for intravenous iron therapy as needed as an outpatient. When she is ready for the discharge, she should be placed on therapeutic dose of Lovenox and then she should have follow-up appointment with anticoagulation clinic with the frequent anti Xa level measurement and adjustment of the dose of Lovenox. She is due for next cycle of chemotherapy with chemotherapy next week but I would like to hold it for now. Overall prognosis remains poor in her case because of disease progression in spite of chemotherapy radiation treatment and there are no other active agents that can be considered in her case. Thanks for the consultation. Dr. Shemar Vance Hem/Onc (This note was completed using the dictation program Fluency Direct. As such, there may be misspellings, word substitutions, or other variations that should not change the essence of the clinical content of this encounter note. If there is need for further clarification, please direct questions to the provider listed above.) Social History Smoking Status: Never Smoker Alcohol Use: none Drug Use: none Marital Status: Housing Status: lives with family Occupation Status: retired Allergies Coded Allergies: Cashew (Verified Allergy, Severe, lips swell, 08/21/16) Celecoxib (Verified Allergy, Intermediate, RASH, 08/21/16) Meloxicam (Verified Allergy, Intermediate, RASH, 08/21/16) Adhesives (Verified Allergy, Unknown, SYSTEMIC ITCHING, 08/21/16) Current Inpatient Medications Current Inpatient Medications Medications (Trade) Dose Ordered Sig/Walt Route Start Time Stop Time Status Last Admin Dose Admin Ioversol (Optiray 320) 100 ml UD PRN IV 08/21/16 16:15 08/25/16 16:14 Potassium Chloride/Dextrose/ Sod Cl 1,000 ml @ 125 mls/hr Q8H IV 08/21/16 20:30 09/20/16 20:29 08/22/16 16:04 125 MLS/HR Levothyroxine Sodium (Synthroid Tab) 100 mcg DAILYBB PO 08/22/16 06:00 09/21/16 06:59 08/22/16 05:34 100 MCG Senna/Docusate Sodium (Senokot S Tab) 1 tab QAM PO 08/22/16 09:00 09/21/16 08:59 08/22/16 08:00 1 TAB Polyethylene (Miralax Powder Packet) 17 gm DAILY PRN PO 08/21/16 20:45 09/20/16 20:44 Acetaminophen (Tylenol Tab) 650 mg Q4H PRN PO 08/21/16 21:15 09/20/16 21:14 Ondansetron HCl (Zofran Inj) 4 mg Q6H PRN IV 08/21/16 21:15 09/20/16 21:14 08/22/16 18:19 4 MG Heparin Sodium/ Dextrose 500 ml @ 19 mls/hr Q24H PRN IV 08/21/16 21:30 09/20/16 21:29 08/22/16 05:33 19 MLS/HR Physical Exam Date Time Temp Pulse Resp B/P (MAP) Pulse Ox O2 Delivery O2 Flow Rate FiO2 08/22/16 19:34 37.5 98 18 121/80 (94) 98 Room Air 08/22/16 18:30 Room Air 08/22/16 18:30 37.4 106 18 122/78 (93) 94 Room Air 08/22/16 18:01 37.1 96 18 98 08/22/16 16:00 Room Air 08/22/16 15:54 37.1 96 18 123/77 (92) 98 Room Air 08/22/16 12:44 37.0 112 18 142/83 (102) 93 Room Air 08/22/16 12:36 36.9 64 20 143/81 (101) 96 Room Air 08/22/16 12:15 Room Air 08/22/16 08:20 Room Air 08/22/16 08:07 37.1 103 16 139/74 (95) 96 Room Air 08/22/16 04:09 37.0 101 20 134/85 (101) 96 Room Air 08/22/16 04:00 96 Room Air 08/21/16 23:59 96 Room Air 08/21/16 23:18 37.6 106 22 119/76 (90) 96 Room Air 08/21/16 22:28 36.9 106 18 122/67 93 Room Air 08/21/16 21:43 104 20 131/69 92 Room Air 08/21/16 20:49 100 20 135/85 98 Laboratory Results Last 24 Hours Test 08/22/16 03:29 08/22/16 11:03 White Blood Count 3.25 K/uL Red Blood Count 3.59 M/uL Hemoglobin 10.3 g/dL Hematocrit 31.3 % Mean Corpuscular Volume 87.2 fL Mean Corpuscular Hemoglobin 28.7 pg Mean Corpuscular Hemoglobin Concent 32.9 g/dl Platelet Count 223 K/uL Mean Platelet Volume 9.3 fL Neutrophils (%) (Auto) 75.4 % Lymphocytes (%) (Auto) 11.4 % Monocytes (%) (Auto) 12.3 % Eosinophils (%) (Auto) 0.0 % Basophils (%) (Auto) 0.3 % Neutrophils # (Auto) 2.45 K/uL Lymphocytes # (Auto) 0.37 K/uL Monocytes # (Auto) 0.40 K/uL Eosinophils # (Auto) 0.00 K/uL Basophils # (Auto) 0.01 K/uL RDW Standard Deviation 56.2 fL RDW Coefficient of Variation 17.5 % Immature Granulocyte % (Auto) 0.6 % Immature Granulocyte # (Auto) 0.02 K/uL Red Blood Cell Morphology Unremarkable Activated Partial Thromboplast Time 33.1 SECONDS 62.3 SECONDS Partial Thromboplastin Ratio 1.3 2.4 Sodium Level 136 mmol/L Potassium Level 3.7 mmol/L Chloride Level 102 mmol/L Carbon Dioxide Level 27 mmol/L Anion Gap 7.0 mmol/L Blood Urea Nitrogen 14 mg/dl Creatinine 0.68 mg/dl Est Creatinine Clear Calc Drug Dose 64.1 ml/min Estimated GFR () 97.8 Estimated GFR (Non- 84.4 BUN/Creatinine Ratio 20.3 Random Glucose 118 mg/dl Calcium Level 7.6 mg/dl Magnesium Level 2.2 mg/dl
[2016-08-23] MEDS: HEPARIN 25,000 UNIT/500ML D5W 500 ML IV PRN ×2 (00:54→05:53)
[2016-08-23] MEDS: D5NSS + 20MEQ KCL 1,000 ML IV SCH ×3 (00:55→17:47)
[2016-08-23] MEDS: ONDANSETRON INJ 2 MG/ML 2 ML VIAL IV PRN ×3 (01:13→13:42)
[2016-08-23 04:32] VITALS: BP 134/81; PULSE 94; TEMP 37.1; O2SAT 96
[2016-08-23 05:08] LABS: HEMATOCRIT 29.8 % (37-47); MEAN CELL VOLUME 88.7 fL (80-100); MEAN CORPUSCULAR HEMOGLOBIN 28.6 pg (25-34); MEAN CORPUSCULAR HGB CONC 32.2 g/dl (32-36); PLATELET COUNT 211 K/uL (130-400); RED BLOOD COUNT 3.36 M/uL (4.2-5.4); WHITE BLOOD COUNT 3.59 K/uL (4.8-10.8)
[2016-08-23 05:18] LABS: PARTIAL THROMBOPLASTIN RATIO 1.4
[2016-08-23 05:47] LABS: BUN/CREATININE RATIO 19.9 (10-20); CREATININE 0.67 mg/dl (0.60-1.20); MAGNESIUM 2.3 mg/dl (1.8-2.4); POTASSIUM 3.9 mmol/L (3.5-5.1)
[2016-08-23 05:52] LABS: BASO % 0.3 %; BASO ABS # 0.01 K/uL (0-0.2); COMPLETE YES; IG% 0.6 %; LYMPH ABS # 0.54 K/uL (1.2-3.4); MONO % 10.6 %; NEUT % 73.5 %
[2016-08-23] MEDS ORDERED: HEPARIN IV BOLUS 4,000 UNIT in SYRINGE 0 ML IV ONE (06:00)
[2016-08-23 06:02] LABS: CALCIUM 7.7 mg/dl (8.5-10.1)
[2016-08-23] MEDS: LEVOTHYROXINE 100 MCG TAB PO SCH (06:30)
[2016-08-23 07:50] VITALS: BP 142/83; PULSE 109; TEMP 36.8; O2SAT 96
[2016-08-23] MEDS: DOCUSATE SODIUM/SENNA 50/8.6MG TAB PO SCH ×2 (09:56→10:38)
--- NOTE | 2016-08-23 10:37 | Surgery Progress Note ---
Surgery Progress Note Date of Service Aug 23, 2016. Subjective + feeling well, + bowel movement, + flatus, No nausea, No vomiting Objective Vital Signs: Date Time Temp Pulse Resp B/P (MAP) Pulse Ox O2 Delivery O2 Flow Rate FiO2 08/23/16 09:10 Room Air 08/23/16 07:50 36.8 109 20 142/83 (102) 96 Room Air 08/23/16 04:32 37.1 94 18 134/81 (98) 96 Room Air 08/23/16 01:00 Room Air 08/22/16 23:52 37.5 103 18 108/72 (84) 98 Room Air 08/22/16 19:45 Room Air 08/22/16 19:34 37.5 98 18 121/80 (94) 98 Room Air 08/22/16 18:30 Room Air 08/22/16 18:30 37.4 106 18 122/78 (93) 94 Room Air 08/22/16 18:01 37.1 96 18 98 08/22/16 16:00 Room Air 08/22/16 15:54 37.1 96 18 123/77 (92) 98 Room Air 08/22/16 12:44 37.0 112 18 142/83 (102) 93 Room Air 08/22/16 12:36 36.9 64 20 143/81 (101) 96 Room Air 08/22/16 12:15 Room Air Abdomen: normal bowel sounds, non tender, non distended, soft Laboratory Results: Results Past 24 Hours Test 08/22/16 11:03 08/23/16 04:50 Range/Units Activated Partial Thromboplast Time 62.3 37.1 21.0-31.0 SECONDS Partial Thromboplastin Ratio 2.4 1.4 White Blood Count 3.59 4.8-10.8 K/uL Red Blood Count 3.36 4.2-5.4 M/uL Hemoglobin 9.6 12.0-16.0 g/dL Hematocrit 29.8 37-47 % Mean Corpuscular Volume 88.7 80-100 fL Mean Corpuscular Hemoglobin 28.6 25-34 pg Mean Corpuscular Hemoglobin Concent 32.2 32-36 g/dl Platelet Count 211 130-400 K/uL Mean Platelet Volume 9.0 7.4-10.4 fL Neutrophils (%) (Auto) 73.5 % Lymphocytes (%) (Auto) 15.0 % Monocytes (%) (Auto) 10.6 % Eosinophils (%) (Auto) 0.0 % Basophils (%) (Auto) 0.3 % Neutrophils # (Auto) 2.64 1.4-6.5 K/uL Lymphocytes # (Auto) 0.54 1.2-3.4 K/uL Monocytes # (Auto) 0.38 0.11-0.59 K/uL Eosinophils # (Auto) 0.00 0-0.5 K/uL Basophils # (Auto) 0.01 0-0.2 K/uL RDW Standard Deviation 57.0 36.4-46.3 fL RDW Coefficient of Variation 17.6 11.5-14.5 % Immature Granulocyte % (Auto) 0.6 % Immature Granulocyte # (Auto) 0.02 0.00-0.02 K/uL Sodium Level 143 136-145 mmol/L Potassium Level 3.9 3.5-5.1 mmol/L Chloride Level 107 98-107 mmol/L Carbon Dioxide Level 30 21-32 mmol/L Anion Gap 6.0 3-11 mmol/L Blood Urea Nitrogen 13 7-18 mg/dl Creatinine 0.67 0.60-1.20 mg/dl Est Creatinine Clear Calc Drug Dose 65.3 ml/min Estimated GFR () 98.3 Estimated GFR (Non- 84.8 BUN/Creatinine Ratio 19.9 10-20 Random Glucose 150 70-99 mg/dl Calcium Level 7.7 8.5-10.1 mg/dl Magnesium Level 2.3 1.8-2.4 mg/dl Assessment & Plan SBO resolved No indication for surgical intervention at this time
[2016-08-23] MEDS ORDERED: NURSING VERBAL MED ORDER ONE (10:45)
[2016-08-23 11:41] VITALS: BP 129/79; PULSE 94; TEMP 37; O2SAT 98
[2016-08-23 12:44] LABS: PARTIAL THROMBOPLASTIN RATIO 2.2
--- NOTE | 2016-08-23 14:20 | DIAGNOSTIC IMAGING REPORT ---
KUB CLINICAL HISTORY: Small bowel obstruction. COMPARISON STUDY: CT of the abdomen and pelvis August 21, 2016. FINDINGS: A few loops of moderately dilated gas-filled small bowel are noted. Small bowel dilatation \has slightly progressed since prior exam. There is a paucity of colonic gas. IMPRESSION: Slight increase in small bowel dilatation. The findings suggest a persistent small bowel obstruction. Electronically signed by: Adria Allen M.D. 08/23/2016 2:19 PM Dictated Date/Time: 08/23/2016 2:17 PM
[2016-08-23 15:24] VITALS: BP 140/83; PULSE 99; TEMP 36.8; O2SAT 100
[2016-08-23] MEDS ORDERED: LOVENOX TEACHING KIT PRN (19:00)
--- NOTE | 2016-08-23 19:00 | Progress Note ---
Internal Med Progress Note Date of Service: Aug 23, 2016. Provider Documentation: SUBJECTIVE: no nausea or vomiting able to have bowel movement today OBJECTIVE: Vital Signs-as noted below Exam: General-no sign of distress Eyes-sclera non icteric ENT-NAd Neck- no J VD Lungs-CTA Heart-regular s1/S2 Abdomen-soft, hypoactive bowel sound Extremities-no lower ext edema Neuro-AAo x3, no focal deficit Lab data as noted below. ASSESSMENT & PLAN: 76 year old female with Endometrial Cancer, on weekly chemotherapy with Taxol, presenting with abdominal pain and nausea. SMALL BOWEL OBSTRUCTION - risk factor: history of colectomy - no nausea/vomiting -appreciate Gen Surg consult moving bowels ,nausea has resolved ordered for clear liquid diet D/C IVF RIGHT LOWER LOBE PULMONARY EMBOLI -possible due to hypercoagulable status due to Endometrial Ca - Doppler US Lower Extremity-: Bilateral acute deep venous thrombosis in the peroneal veins bilaterally. appreciate input form Heme onc IV heparin D/lisa started on Therapeutic Lovenox HYPOKALEMIA normal level today ENDOMETRIAL CANCER unable to have hysterectomy due to multiple medical issues - on chemo with Taxol weekly -has ongoing vaginal bloody discharge no active bleeding reported follows with Heme onc Dr Vance Code status DNI DVT PROPHYLAXIS therapeutic Lovenox SC ( more appropriate anticoagulation in setting of malignancy ) DISPOSITION lives alone independently has supportive daughter possible discharge home in next 24-48 hrs if medically remains stable ff up with Dr. Yulia Vance for PCP Dr. Renita Vance for Onco Dr. Taveras in [facility] for Gyne Onco Vital Signs: Date Time Temp Pulse Resp B/P (MAP) Pulse Ox O2 Delivery O2 Flow Rate FiO2 08/23/16 15:24 36.8 99 18 140/83 (102) 100 Room Air 08/23/16 11:41 37.0 94 18 129/79 (96) 98 Room Air 08/23/16 09:10 Room Air 08/23/16 07:50 36.8 109 20 142/83 (102) 96 Room Air 08/23/16 04:32 37.1 94 18 134/81 (98) 96 Room Air 08/23/16 01:00 Room Air 08/22/16 23:52 37.5 103 18 108/72 (84) 98 Room Air 08/22/16 19:45 Room Air 08/22/16 19:34 37.5 98 18 121/80 (94) 98 Room Air Lab Results: Results Past 24 Hours Test 08/23/16 04:50 08/23/16 12:02 Range/Units White Blood Count 3.59 4.8-10.8 K/uL Red Blood Count 3.36 4.2-5.4 M/uL Hemoglobin 9.6 12.0-16.0 g/dL Hematocrit 29.8 37-47 % Mean Corpuscular Volume 88.7 80-100 fL Mean Corpuscular Hemoglobin 28.6 25-34 pg Mean Corpuscular Hemoglobin Concent 32.2 32-36 g/dl Platelet Count 211 130-400 K/uL Mean Platelet Volume 9.0 7.4-10.4 fL Neutrophils (%) (Auto) 73.5 % Lymphocytes (%) (Auto) 15.0 % Monocytes (%) (Auto) 10.6 % Eosinophils (%) (Auto) 0.0 % Basophils (%) (Auto) 0.3 % Neutrophils # (Auto) 2.64 1.4-6.5 K/uL Lymphocytes # (Auto) 0.54 1.2-3.4 K/uL Monocytes # (Auto) 0.38 0.11-0.59 K/uL Eosinophils # (Auto) 0.00 0-0.5 K/uL Basophils # (Auto) 0.01 0-0.2 K/uL RDW Standard Deviation 57.0 36.4-46.3 fL RDW Coefficient of Variation 17.6 11.5-14.5 % Immature Granulocyte % (Auto) 0.6 % Immature Granulocyte # (Auto) 0.02 0.00-0.02 K/uL Activated Partial Thromboplast Time 37.1 56.6 21.0-31.0 SECONDS Partial Thromboplastin Ratio 1.4 2.2 Sodium Level 143 136-145 mmol/L Potassium Level 3.9 3.5-5.1 mmol/L Chloride Level 107 98-107 mmol/L Carbon Dioxide Level 30 21-32 mmol/L Anion Gap 6.0 3-11 mmol/L Blood Urea Nitrogen 13 7-18 mg/dl Creatinine 0.67 0.60-1.20 mg/dl Est Creatinine Clear Calc Drug Dose 65.3 ml/min Estimated GFR () 98.3 Estimated GFR (Non- 84.8 BUN/Creatinine Ratio 19.9 10-20 Random Glucose 150 70-99 mg/dl Calcium Level 7.7 8.5-10.1 mg/dl Magnesium Level 2.3 1.8-2.4 mg/dl Microbiology Results 08/23/16 C.difficile Toxin B Gene (PCR) - Final, Complete No C. difficile toxin B gene detected
[2016-08-23 20:27] VITALS: BP 112/73; PULSE 95; TEMP 37.3; O2SAT 99
[2016-08-23] MEDS: ENOXAPARIN 80 MG/0.8 ML SYR SQ SCH (21:10)
[2016-08-24 00:30] VITALS: BP 108/69; PULSE 90; TEMP 37.1; O2SAT 97
[2016-08-24 03:39] VITALS: BP 128/78; PULSE 89; TEMP 36.9; O2SAT 100
[2016-08-24] MEDS: LEVOTHYROXINE 100 MCG TAB PO SCH (06:37)
[2016-08-24] MEDS: ENOXAPARIN 80 MG/0.8 ML SYR SQ SCH ×2 (06:37→18:22)
[2016-08-24 07:27] VITALS: BP 133/82; PULSE 80; TEMP 37; O2SAT 98
[2016-08-24] MEDS: DOCUSATE SODIUM/SENNA 50/8.6MG TAB PO SCH ×2 (08:15→08:17)
--- NOTE | 2016-08-24 11:16 | Surgery Progress Note ---
Surgery Progress Note Date of Service Aug 24, 2016. Subjective + bowel movement, + flatus, + nausea, + vomiting Denies abdominal pain Objective Vital Signs: Date Time Temp Pulse Resp B/P (MAP) Pulse Ox O2 Delivery O2 Flow Rate FiO2 08/24/16 08:30 Room Air 08/24/16 07:27 37.0 80 18 133/82 (99) 98 Room Air 08/24/16 03:39 36.9 89 20 128/78 (95) 100 Room Air 08/24/16 01:22 Room Air 08/24/16 00:30 37.1 90 20 108/69 (82) 97 Room Air 08/23/16 20:57 Room Air 08/23/16 20:27 37.3 95 20 112/73 (86) 99 Room Air 08/23/16 16:00 Room Air 08/23/16 15:24 36.8 99 18 140/83 (102) 100 Room Air 08/23/16 11:41 37.0 94 18 129/79 (96) 98 Room Air Abdomen: normal bowel sounds, non tender, non distended, soft Laboratory Results: Results Past 24 Hours Test 08/23/16 12:02 Range/Units Activated Partial Thromboplast Time 56.6 21.0-31.0 SECONDS Partial Thromboplastin Ratio 2.2 Microbiology Results 08/23/16 C.difficile Toxin B Gene (PCR) - Final, Complete No C. difficile toxin B gene detected Assessment & Plan SBO resolved No indication for surgical intervention at this time
[2016-08-24 15:03] VITALS: BP 155/84; PULSE 84; TEMP 37.1; O2SAT 96
[2016-08-24] MEDS ORDERED: TRAMADOL HCL 50 MG TAB PO PRN (16:30)
[2016-08-24] MEDS ORDERED: LVNIS80 SQ (16:31)
[2016-08-24] MEDS ORDERED: MRLP17X PO (16:31)
--- NOTE | 2016-08-24 16:35 | Discharge Instructions ---
Discharge Instructions Date of Service Aug 24, 2016. Admission Reason for Admission: Pulmonary Embolism, Small Bowel Obstruction Discharge Discharge Diagnosis / Problem: (1) DVT (deep venous thrombosis) (2) Pulmonary embolism (3) Small bowel obstruction (4) Endometrial adenocarcinoma VTE Date & Time Date of VTE Diagnosis: Aug 21, 2016 Time of VTE Diagnosis: 20:28 Discharge Goals Goal(s): Decrease discomfort, Improve disease control, Diagnostic testing, Therapeutic intervention Activity Recommendations Activity Limitations: as noted below (as tolerated ) . Instructions / Follow-Up Instructions / Follow-Up AVOID ASPIRIN , MOTRIN , ADVIL MAY CAUSE INCREASED BLEEDING HOSPITAL FOLLOW UP ON 09/02/2016 @ 2:[address] My Hermosillo MD General Internal Medicine [facility] YOU WILL NEED INSURANCE AUTHORIZATION FOR LOVENOX INJECTION PLEASE CONTACT DR JAZIEL HERMOSILLO'S OFFICE FOR FURTHER INFORMATION NEED FOLLOW UP AT ANTICOAGULATION CLINIC FOR LAB WORK AND LOVENOX DOSE MONITORING OFFICE WILL CALL WITH APPOINTMENT DR JAZIEL HERMOSILLO IS AWARE REGARDING INSURANCE ISSUE Call your Primary Care doctor if you experience any of the following: * Swelling or Pain in your leg * Sudden, continuous pain deep in a muscle * Pain that worsens when you are active or when you stand still for a long time * Chest Pain * Sudden Shortness of Breath * Rapid or pounding heart beat * Fainting * Dizziness * Cough with blood or bloody sputum * Sweating more than normal * Bruises * Heavy or uncontrolled bleeding * Blood in your urine, stool or vomit * Black or tarry stools Caring for Your Self at Home: * Avoid sitting, standing or lying down for long periods without moving your legs and feet * When traveling by car, stop to get out and move around at least once every 3 hours * On long airplane, train or bus rides, get up and move around when possible * If you can't get up, wiggle your toes and tighten your calves to keep your blood moving Follow Up: It is important for you to keep your follow up appointments with your medical provider. Current Hospital Diet Patient's current hospital diet: Regular Diet Discharge Diet Recommended Diet: Regular Diet Pending Studies Studies pending at discharge: yes List of pending studies: Need anti Xa level measurement and adjustment of the dose of Lovenox at anticoagulation clinic Medical Emergencies . Who to Call and When: Medical Emergencies: If at any time you feel your situation is an emergency, please call 911 immediately. . Non-Emergent Contact Non-Emergency issues call your: Primary Care Provider . . "Provider Documentation" section prepared by Anita Mccord. . VTE Core Measure Inpt VTE Proph given/why not?: Enoxaparin (Lovenox)SQ Reason no anticoag overlap I/P: Treatment provided - N/A Reason no anticoag overlap @DC: Treatment provided - N/A
[2016-08-24] MEDS ORDERED: ENOXAPARIN 80 MG/0.8 ML SYR SQ SCH (16:45)
--- NOTE | 2016-08-24 17:04 | Progress Note ---
Internal Med Progress Note Date of Service: Aug 24, 2016. Provider Documentation: SUBJECTIVE: tolerating diet , advanced to solid tolerating well no nausea having bowel movement feels fine wants to be discharged home today daughter visiting OBJECTIVE: Vital Signs-as noted below Exam: General-no sign of distress Eyes-sclera non icteric ENT-NAd Neck- no J VD Lungs-CTA Heart-regular s1/S2 Abdomen-soft, hypoactive bowel sound Extremities-no lower ext edema Neuro-AAo x3, no focal deficit Lab data as noted below. ASSESSMENT & PLAN: 76 year old female with Endometrial Cancer, on weekly chemotherapy with Taxol, presenting with abdominal pain and nausea. SMALL BOWEL OBSTRUCTION resolved -with conservative approach - risk factor: history of colectomy - no nausea/vomiting -appreciate Gen Surg consult moving bowels ,nausea has resolved diet advanced to solid will be discharged home later today RIGHT LOWER LOBE PULMONARY EMBOLI/BILAT LOWER EXT DVT -possible due to hypercoagulable status due to Endometrial Ca - Doppler US Lower Extremity-: Bilateral acute deep venous thrombosis in the peroneal veins bilaterally. appreciate input form Heme onc started on Therapeutic Lovenox -appropriate anticoagulation for DVT /PE in setting of Malignancy /adeno CA on Lovenox 70 mg q 12 SC Lovenox teaching provided home nursing referral made contacted pt's Pharmacy -does not have coverage for SC Lovenox will need Physician Pre Authorization pt will be discharged home with 2 days supply of Lovenox sub q ( [facility] [place] pharmacy updated ) pt already given today's dose of Lovenox Updated Heme Onc Dr Shemar Vance -Heme onc office will contact insurance for Pre Authorization for Lovenox -tomorrow 08/25/2016 HYPOKALEMIA due to GI loss corrected ENDOMETRIAL CANCER unable to have hysterectomy due to multiple medical issues - on chemo with Taxol weekly -has ongoing chronic vaginal bloody discharge no active bleeding reported /no worsening of discharge H&H remains stable follows with Heme onc Dr Vance Code status DNI DVT PROPHYLAXIS therapeutic Lovenox SC ( more appropriate anticoagulation in setting of malignancy ) DISPOSITION l discharge home today home health visiting nurse [facility] ff up with Dr. Yulia Vance for PCP Dr. Renita Vance for Oncology -Dr Vance's office will contact Pt's insurance company for authorization of [employer]ables worker Lovenox therapy Dr. Taveras in [facility] for Gyne Onco Vital Signs: Date Time Temp Pulse Resp B/P (MAP) Pulse Ox O2 Delivery O2 Flow Rate FiO2 08/24/16 15:03 37.1 84 18 155/84 (107) 96 Room Air 08/24/16 08:30 Room Air 08/24/16 07:27 37.0 80 18 133/82 (99) 98 Room Air 08/24/16 03:39 36.9 89 20 128/78 (95) 100 Room Air 08/24/16 01:22 Room Air 08/24/16 00:30 37.1 90 20 108/69 (82) 97 Room Air 08/23/16 20:57 Room Air 08/23/16 20:27 37.3 95 20 112/73 (86) 99 Room Air
--- NOTE | 2016-08-24 18:41 | Discharge Summary ---
Discharge Summary Date of Service Aug 24, 2016. Discharge Summary Admission Date: Aug 21, 2016 at 20:28 Discharge Date: Aug 24, 2016 Discharge Disposition: Home with services Principal Diagnosis: (1) DVT (deep venous thrombosis) (2) Pulmonary embolism (3) Small bowel obstruction (4) Endometrial adenocarcinoma Procedures: CT ABDOMEN /PELVIS WITH CONTRAST ; IMPRESSION: 1. Findings consistent with a moderate grade small bowel obstruction with transition point within the right lower quadrant. Small amount of ascites. No pneumatosis, free air or portal venous gas. 2. Several segmental right lower lobe pulmonary emboli. 3. Endometrial thickening which was shown on prior imaging studies. Residual/recurrent malignancy could have this imaging appearance. BILATERAL LOWER EXTREMITY ULTRASOUND : IMPRESSION: Bilateral acute deep venous thrombosis in the peroneal veins bilaterally. Consultations: GENERAL SURGERY DR ALMONTE HEMATOLOGY /ONCOLOGY DR JAZIEL VANCE Medication Reconciliation New Medications: Enoxaparin (Lovenox) 80 Mg/0.8 Ml Inj 70 MG SQ Q12H for 14 Days, #28 EA 2 Refills Polyethylene (Miralax) 17 Gm Pow 17 GM PO DAILY PRN for Constipation for 30 Days over the counter Continued Medications: Cholecalciferol (Vitamin D3 Ultra Potency) 50,000 Unit Tab 28012 UNITS PO [id number] Levothyroxine Sodium (Synthroid) 100 Mcg Tab 100 MCG PO DAILY Magnesium (Magnesium Sulfate) Unknown Strength Cap Unknown Dose PO DIRECTED PRN for Constipation Prochlorperazine Maleate (Compazine) 10 Mg Tab 10 MG PO [id number] PRN for Nausea or Vomiting, TAB NAUSEA/VOMITING Pseudoephedrine (Sudafed) 30 Mg Tab 30 MG PO Q4 PRN for Nasal Congestion, TAB Sennosides-Docusate Sodium (Stool Softener) 1 Tab Tab 1 TAB PO DAILY Discontinued Medications: Aspirin (Aspirin Ec) 325 Mg Tab 650 MG PO QID PRN for Pain Referrals At Discharge Follow up Referrals: Physician Referral - 09/02/16 with My Vance M.D. Admission Information HPI (per Admitting provider): 76 year old female with Endometrial Cancer, on weekly chemotherapy with Taxol, presenting with abdominal pain and nausea. Follows with Dr.Manisha Vance for PCP and Dr. Jaziel Vance for Oncology, Dr. Taveras in [facility] for Gyne/Onco. Patient receives Taxol weekly (3 weeks on , 1 week off). She is quite active and takes care of activities of daily living independently. Patient was at her usual state of health until last weekend when she started to have some nausea. Last , she started to have abdominal cramps. Yesterday, on the way to [facility] for routine visit, she had nausea and some vomiting episodes. She is not able to keep anything down since yesterday except for some fluids. Last BM was Thursday. Symptoms persisted today, prompting ER consult. CT abdomen reveals (+) moderate small bowel obstruction, transition point at the RLQ, no free air. (+) RLL segmental pulmonary emboli On my exam, patient seen resting in bed with daughter Clayton at the bedside. States she has mild lower quadrant discomfort, but no nausea. No flatus or BM yet. Denies chest pain, dyspnea, palpitations, dizziness. She reports having vaginal spotting, almost daily, which is chronic. No other major bleeding noted. No other symptoms Physical Exam (per Admitting): General Appearance: WD/WN, no apparent distress Head: normocephalic, atraumatic Eyes: normal inspection, EOMI, sclerae normal ENT: normal ENT inspection, hearing grossly normal, pharynx normal Neck: supple, no adenopathy, thyroid normal, no JVD, trachea midline Respiratory/Chest: chest non-tender, lungs clear, normal breath sounds, no respiratory distress, no accessory muscle use Cardiovascular: regular rate, rhythm, no JVD, no murmur, normal peripheral pulses, + pertinent finding (Port on the right chest wall: clean, no swelling) Abdomen/GI: non tender, soft, no organomegaly, + pertinent finding ( hypoactive bowel sounds) Back: normal inspection, no CVA tenderness Extremities/Musculoskelatal: no calf tenderness, no pedal edema, normal range of motion, non-tender, + pertinent finding (right arm (+) mild edema/ warmth/tenderness) Neurologic/Psych: well logging captain II-XII nml as tested, no motor/sensory deficits, alert , normal mood/affect, oriented x 3 Skin: normal color, warm/dry, no rash Lymphatic: no adenopathy Hospital Course 76 year old female with Endometrial Cancer, on weekly chemotherapy with Taxol, presenting with abdominal pain and nausea. SMALL BOWEL OBSTRUCTION resolved -with conservative approach - risk factor: history of colectomy - no nausea/vomiting -appreciate Gen Surg consult moving bowels ,nausea has resolved diet advanced to solid will be discharged home later today RIGHT LOWER LOBE PULMONARY EMBOLI/BILAT LOWER EXT DVT -possible due to hypercoagulable status due to Endometrial Ca - Doppler US Lower Extremity-: Bilateral acute deep venous thrombosis in the peroneal veins bilaterally. appreciate input form Heme onc started on Therapeutic Lovenox -appropriate anticoagulation for DVT /PE in setting of Malignancy /adeno CA on Lovenox 70 mg q 12 SC Lovenox teaching provided home nursing referral made contacted pt's Pharmacy -does not have coverage for SC Lovenox will need Physician Pre Authorization pt will be discharged home with 2 days supply of Lovenox sub q ( [facility] pharmacy updated ) pt already given today's dose of Lovenox Updated Heme Onc Dr Jaziel Vance -Heme onc office will contact insurance for Pre Authorization for Lovenox -tomorrow 08/25/2016 HYPOKALEMIA due to GI loss corrected ENDOMETRIAL CANCER unable to have hysterectomy due to multiple medical issues - on chemo with Taxol weekly -has ongoing chronic vaginal bloody discharge no active bleeding reported /no worsening of discharge H&H remains stable follows with Heme onc Dr Vance Code status DNI DVT PROPHYLAXIS therapeutic Lovenox SC ( more appropriate anticoagulation in setting of malignancy ) DISPOSITION l discharge home today home health visiting nurse through [facility] ff up with Dr. Yulia Vance for PCP Dr. Renita Vance for Oncology -Dr Vance's office will contact Pt's insurance company for authorization of half-way Lovenox therapy Dr. Taveras in [facility] for Gyne Onco Total time spent on discharge = 40 mins This includes examination of the patient, discharge planning, medication reconciliation, and communication with other providers. Discharge Instructions Discharge Instructions Date of Service Aug 24, 2016. Admission Reason for Admission: Pulmonary Embolism, Small Bowel Obstruction Discharge Discharge Diagnosis / Problem: (1) DVT (deep venous thrombosis) (2) Pulmonary embolism (3) Small bowel obstruction (4) Endometrial adenocarcinoma VTE Date & Time Date of VTE Diagnosis: Aug 21, 2016 Time of VTE Diagnosis: 20:28 Discharge Goals Goal(s): Decrease discomfort, Improve disease control, Diagnostic testing, Therapeutic intervention Activity Recommendations Activity Limitations: as noted below (as tolerated ) . Instructions / Follow-Up Instructions / Follow-Up AVOID ASPIRIN , MOTRIN , ADVIL MAY CAUSE INCREASED BLEEDING HOSPITAL FOLLOW UP ON 09/02/2016 @ 2:[address] My Vance MD General Internal Medicine [facility] YOU WILL NEED INSURANCE AUTHORIZATION FOR LOVENOX INJECTION PLEASE CONTACT DR JAZIEL VANCE'S OFFICE FOR FURTHER INFORMATION NEED FOLLOW UP AT ANTICOAGULATION CLINIC FOR LAB WORK AND LOVENOX DOSE MONITORING OFFICE WILL CALL WITH APPOINTMENT DR JAZIEL VANCE IS AWARE REGARDING INSURANCE ISSUE Call your Primary Care doctor if you experience any of the following: * Swelling or Pain in your leg * Sudden, continuous pain deep in a muscle * Pain that worsens when you are active or when you stand still for a long time * Chest Pain * Sudden Shortness of Breath * Rapid or pounding heart beat * Fainting * Dizziness * Cough with blood or bloody sputum * Sweating more than normal * Bruises * Heavy or uncontrolled bleeding * Blood in your urine, stool or vomit * Black or tarry stools Caring for Your Self at Home: * Avoid sitting, standing or lying down for long periods without moving your legs and feet * When traveling by car, stop to get out and move around at least once every 3 hours * On long airplane, train or bus rides, get up and move around when possible * If you can't get up, wiggle your toes and tighten your calves to keep your blood moving Follow Up: It is important for you to keep your follow up appointments with your medical provider. Current Hospital Diet Patient's current hospital diet: Regular Diet Discharge Diet Recommended Diet: Regular Diet Pending Studies Studies pending at discharge: yes List of pending studies: Need anti Xa level measurement and adjustment of the dose of Lovenox at anticoagulation clinic Medical Emergencies . Who to Call and When: Medical Emergencies: If at any time you feel your situation is an emergency, please call 911 immediately. . Non-Emergent Contact Non-Emergency issues call your: Primary Care Provider . . "Provider Documentation" section prepared by Anita Mccord. . VTE Core Measure Inpt VTE Proph given/why not?: Enoxaparin (Lovenox)SQ Reason no anticoag overlap I/P: Treatment provided - N/A Reason no anticoag overlap @DC: Treatment provided - N/A Additional Copies To Jaziel Vance M.D. My Vance M.D.
[2016-08-24 19:09] VITALS: BP 155/84; PULSE 84; TEMP 37.1; O2SAT 96
[2016-08-24] MEDS ORDERED: ULT50X PO (19:24)
== END 2016-08-24 19:55 | disposition home health service (06) | DRG 388 ==
LOC: C.EDB 15:48 → CANRESERV 19:32 → ENRESERV 19:32 → C.2T 20:28 → EDBEDREQ 20:53 → EDBEDREQSVC 20:53 → CANBEDREQ 21:21 → ENRESERV 21:24 → C.4E 08-22 18:06
PROVIDERS: ADMIT Internal Medicine; ATTEND Hospitalist
DX: K56.60 Unspecified intestinal obstruction (principal); I82.493 Acute embolism and thrombosis of other specified deep vein of lower extremity, bilateral; I26.99 Other pulmonary embolism without acute cor pulmonale; Z86.711 Personal history of pulmonary embolism; C54.1 Malignant neoplasm of endometrium; Z79.899 Other long term (current) drug therapy; E87.6 Hypokalemia; Z92.3 Personal history of irradiation

== ENCOUNTER → 2016-08-28 | Outpatient (CLI) | payer OTHER, MEDICARE ==
[~2016-08-28] MED LIST changes: -ASPI325T39 PO; -CALC500C70 PO; +CHOL500024 PO; +LVNIS80 SQ; -MAGN400T6 PO; +MAGN70CA PO; +MRLP17X PO; +PROC1TAB5 PO; +ULT50X PO
[2016-08-28 16:46] LABS: BASO % 0.4 %; BASO ABS # 0.02 K/uL (0-0.2); COMPLETE YES; EOS % 0.2 %; HEMATOCRIT 29.4 % (37-47); IG% 4.3 %; LYMPH % 14.5 %; LYMPH ABS # 0.82 K/uL (1.2-3.4); MEAN CELL VOLUME 87.2 fL (80-100); MEAN CORPUSCULAR HEMOGLOBIN 28.5 pg (25-34); MEAN CORPUSCULAR HGB CONC 32.7 g/dl (32-36); MEAN PLATELET VOLUME 9.1 fL (7.4-10.4); NEUT % 71.6 %; PLATELET COUNT 264 K/uL (130-400); RED BLOOD COUNT 3.37 M/uL (4.2-5.4); WHITE BLOOD COUNT 5.64 K/uL (4.8-10.8)
== END | disposition home or self-care (01) ==
LOC: C.LABSPEC 16:56
PROVIDERS: ATTEND Internal Medicine Hematology
DX: Z51.11 Encounter for antineoplastic chemotherapy (principal); C54.1 Malignant neoplasm of endometrium; I82.4Z3 Acute embolism and thrombosis of unspecified deep veins of distal lower extremity, bilateral; I26.99 Other pulmonary embolism without acute cor pulmonale

== ENCOUNTER → 2016-09-08 | Outpatient (CLI) | payer OTHER, MEDICARE | END | disposition home or self-care (01) | LOC: C.LABSPEC 14:34 | PROVIDERS: ATTEND Internal Medicine Hematology | DX: I82.4Z3 Acute embolism and thrombosis of unspecified deep veins of distal lower extremity, bilateral (principal); I26.99 Other pulmonary embolism without acute cor pulmonale ==